=== PATIENT | female | born 1995 | race Caucasian/White ===

== ENCOUNTER 2016-07-30 16:19 | Emergency (ER) | payer OTHER ==
--- NOTE | ~2016-07-30 | ER ---
PATIENT'S NAME: JAYASHREE [facility] AGE: 21 Y [address] ROOM: [place] [id number] LOCATION: [facility] ADMIT DATE: 07/30/2016 ER/Outpatient Report DISCHARGE DATE: 07/30/2016 FAMILY PHYSICIAN: Rolly Godfrey PA-C ATTENDING PHYSICIAN: Tracie Rizo CHIEF COMPLAINT: Foot injury. TIME OF THE PATIENT ARRIVAL: 1619 hours. TIME OF THE PATIENT EVALUATION: 1635 hours. HISTORY OF PRESENT ILLNESS: This is a 21-year-old female who presents to the ER who injured her right foot 45 minutes prior to arrival. The patient states a jennifer block fell on top of her right foot and it was a couple of inches off the ground. She states she is having some tenderness on the top of her foot. She denies any other problems at this time. ALLERGIES: NO KNOWN ALLERGIES. MEDICATIONS: None. PAST MEDICAL HISTORY: Negative. PAST SURGERIES: None. SOCIAL HISTORY: Denies smoking, drug, or alcohol use. REVIEW OF SYSTEMS: MUSCULOSKELETAL: Complaining of right foot pain. SKIN: Has a bruise to the top of her foot. PHYSICAL EXAMINATION: VITAL SIGNS: Weight 50.9 kg taken, blood pressure is 111/66, pulse 104, respirations 18, temperature 99 degrees tympanically, and saturations 99% on room air. [place] Coma Score is 15. PATIENT'S NAME: RAFAEL BLANC [facility] AGE: 21 Y [address] ROOM: [place] [address] LOCATION: [facility] ADMIT DATE: 07/30/2016 ER/Outpatient Report DISCHARGE DATE: 07/30/2016 FAMILY PHYSICIAN: Rolly Godfrey PA-C ATTENDING PHYSICIAN: Tracie Rizo GENERAL: Alert, calm, well-developed female, in no acute distress. EXTREMITIES: No clubbing or cyanosis. She does have some tenderness with palpation over her 2nd, 3rd, and 4th metatarsals. There is some slight swelling and ecchymoses noted there as well. She has good sensation to her foot. She has full range of motion of all of her toes. Good pedal pulse noted as well. NEURO: Cranial nerves 2 through 12 are grossly intact. Gait is steady with a slight limp. LABORATORY DATA: None were done. X-RAYS: X-rays of the right foot show no fracture. IMPRESSION: Contusion to right foot. ASSESSMENT AND PLAN: We did give the patient reassurance. We did apply an Manpreet wrap. She would like some crutches to ambulate; so, we did provide those as well. She needs to ice and elevate the foot, take Tylenol or ibuprofen as needed for pain control, and follow up with her primary care physician if needed. The patient understands and agrees with care. ADRIANNA SEPULVEDA PA-C FOR MD GELY GONSALES/pearl /[id number] d: t: 08/03/16 1158, OUTPATIENT REPORT
== END 2016-07-30 16:56 | disposition disaster alternative care site (69) ==
LOC: GACC 16:19
DX: S90.31XA Contusion of right foot, initial encounter (principal); W20.8XXA Other cause of strike by thrown, projected or falling object, initial encounter